=== PATIENT | male | born 1975 | race African-American/Black ===

== ENCOUNTER 2017-06-23 18:34 | Inpatient (IN) | payer MEDICAID, OTHER ==
[~2017-06-23] VITALS: Ht 185.4 cm; Wt 61.8 kg
[2017-06-23] MEDS ORDERED: SODIUM CHLORIDE 0.9% 1,000 ML IV ONE (19:17)
[2017-06-23] MEDS ORDERED: MORPHINE SULFATE 4 MG/ML CPJ (NOT FOR IM USE) IV STA (19:17)
[2017-06-23] MEDS ORDERED: ONDANSETRON HCL 4MG/2ML VIAL IV STA (19:17)
[2017-06-23 19:53] LABS: EOSINOPHILS % 1.8 % (0.0-5.0); HEMATOCRIT. 43.7 % (42.0-52.0); HEMOGLOBIN. 15.1 g/dL (14.0-18.0); LYMPHOCYTES % 15.2 % (20.0-50.0); MEAN CORPUSCULAR HEMOGLOBIN 30.9 pg (28.0-32.0); MEAN CORPUSCULAR VOLUME 89.4 fL (80.0-94.0); MEAN PLATELET VOLUME 8.6 fl (7.4-10.4); MONOCYTES % 7.1 % (2.0-8.0); NEUTROPHILS % 74.9 % (40.0-76.0); PLATELET 249 x1000/uL (130-400); RED BLOOD CELL COUNT 4.89 mill/uL (4.7-6.1); RED CELL DISTRIBUTION WIDTH 13.5 % (11.6-14.6)
[2017-06-23] MEDS ORDERED: MORPHINE SULFATE 10 MG/ML CPJ IV NR ×2 (20:00→21:30)
[2017-06-23 20:04] LABS: CARBON DIOXIDE 25 mEq/L (21-32); CHLORIDE 103 mEq/L (98-107)
[2017-06-23 20:33] LABS: PARTIAL THROMBOPLASTIN TIME 25.8 sec (23.4-31.0); PROTHROMBIN TIME 10.2 sec (9.4-11.6)
[2017-06-23] MEDS ORDERED: MORPHINE SULFATE 4 MG/ML CPJ (NOT FOR IM USE) IV ONE (21:00)
[2017-06-23] MEDS ORDERED: ENOXAPARIN 120MG/0.8ML SYR SUBCUT ONE (21:00)
[2017-06-23] MEDS ORDERED: DOCUSATE SODIUM 100MG CAPSULE PO PRN (23:00)
[2017-06-23] MEDS ORDERED: ONDANSETRON HCL 4MG/2ML VIAL IV PRN (23:00)
[2017-06-23] MEDS ORDERED: HYDROCODONE/ACETAMINOPHEN 5/325MG TABLET PO PRN (23:00)
[2017-06-23] MEDS ORDERED: MAGNESIUM/ALUMINUM HYDROXIDE/SIMETHICONE 30ML UDC PO PRN (23:00)
[2017-06-23] MEDS ORDERED: ACETAMINOPHEN 325MG TABLET PO PRN (23:00)
[2017-06-23] MEDS ORDERED: MORPHINE SULFATE 10 MG/ML CPJ IV PRN (23:00)
[2017-06-23] MEDS ORDERED: IPRATROPIUM/ALBUTEROL 0.5-3(2.5)MG/3ML NEB INH PRN (23:00)
[2017-06-23] MEDS ORDERED: POTASSIUM CHLORIDE 20MEQ TABLET SR PO NR (23:00)
[2017-06-23] MEDS ORDERED: CLONIDINE 0.1MG TABLET PO PRN (23:00)
[2017-06-23 23:35] VITALS: BP 138/88
[2017-06-24] VITALS (12 sets, daily range): BP systolic 117–157; BP diastolic 68–95
[2017-06-24 00:38] LABS: BASOPHILS % 0.8 % (0.0-2.0); EOSINOPHILS % 0.1 % (0.0-5.0); HEMATOCRIT. 41.8 % (42.0-52.0); HEMOGLOBIN. 14.3 g/dL (14.0-18.0); LYMPHOCYTES % 11.3 % (20.0-50.0); MEAN CORPUSCULAR HEMOGLOBIN 30.9 pg (28.0-32.0); MEAN CORPUSCULAR VOLUME 90.4 fL (80.0-94.0); MEAN PLATELET VOLUME 8.6 fl (7.4-10.4); MONOCYTES % 3.9 % (2.0-8.0); NEUTROPHILS % 83.9 % (40.0-76.0); PLATELET 225 x1000/uL (130-400); RED BLOOD CELL COUNT 4.62 mill/uL (4.7-6.1)
[2017-06-24 01:14] LABS: CARBON DIOXIDE 26 mEq/L (21-32); CHLORIDE 105 mEq/L (98-107); HDL CHOLESTEROL 55 mg/dL (40-59); LDL CHOLESTEROL 164 mg/dL (5-100)
[2017-06-24 07:19] LABS: CLARITY URINE CLEAR (CLEAR); COLOR URINE YELLOW (YELLOW); GLUCOSE URINE NEGATIVE (NEGATIVE); KETONES URINE NEGATIVE (NEGATIVE); LEUKOCYTE ESTERASE URINE TRACE (NEGATIVE); NITRITE URINE NEGATIVE (NEGATIVE); OCCULT BLOOD URINE 1+ (NEGATIVE); PROTEIN URINE NEGATIVE (NEGATIVE); SPECIFIC GRAVITY URINE 1.027 (1.005-1.030); UROBILINOGEN URINE 0.2 E.U./dL (0.2-1.0)
[2017-06-24 07:47] LABS: *AMPHETAMINES SCREEN URINE NEGATIVE (NEGATIVE); *BARBITURATES SCREEN URINE NEGATIVE (NEGATIVE); *BENZODIAZEPINES SCREEN URINE NEGATIVE (NEGATIVE); *COCAINE SCREEN URINE NEGATIVE (NEGATIVE); CANNABINOID URINE SCREEN PRESUMTIVE POSITIVE (NEGATIVE); METHADONE URINE SCREEN NEGATIVE (NEGATIVE); OPIATES URINE SCREEN PRESUMTIVE POSITIVE (NEGATIVE); PHENCYCLIDINE URINE SCREEN NEGATIVE (NEGATIVE)
[2017-06-24 08:34] LABS: CREATINE KINASE MB FRACTION 44.2 ng/mL (0.5-3.6)
[2017-06-24 08:37] LABS: TROPONIN I 5.3 ng/mL (0.00-0.04)
[2017-06-24] MEDS: METOPROLOL TARTRATE 25MG TABLET PO SCH ×2 (08:37→21:11)
[2017-06-24] MEDS ORDERED: ASPIRIN 81MG EC TABLET PO SCH ×2 (09:00→10:25)
[2017-06-24] MEDS ORDERED: ENOXAPARIN 120MG/0.8ML SYR SUBCUT SCH (09:00)
[2017-06-24] MEDS: NITROGLYCERIN OINT 1GM/INCH UDPKT TD SCH ×3 (10:30→20:09)
[2017-06-24] MEDS: AMLODIPINE 2.5MG TABLET PO SCH ×2 (10:30→21:11)
[2017-06-24] MEDS ORDERED: CLONIDINE 0.2MG TABLET PO PRN (10:30)
[2017-06-24] MEDS ORDERED: LIDOCAINE HCL 1% 20ML VIAL (Pyxis) INJ ONE (10:50)
[2017-06-24] MEDS ORDERED: IOHEXOL-300 100 ML BOTTLE ONE (10:51)
[2017-06-24] MEDS ORDERED: MIDAZOLAM HCL 2 MG/2 ML VIAL ONE (10:55)
[2017-06-24] MEDS ORDERED: IOVERSOL 240MG/ML 100ML BOTTLE IV ONE (11:15)
[2017-06-24] MEDS ORDERED: IODIXANOL 320MG/ML 100 ML BOTTLE IV ONE ×2 (11:25→11:55)
[2017-06-24] MEDS ORDERED: HEPARIN SODIUM 1,000 UNIT/1ML VIAL IV ONE (12:02)
[2017-06-24] MEDS ORDERED: CLOPIDOGREL 75MG TABLET ONE (12:10)
[2017-06-24] MEDS ORDERED: ATROPINE SULFATE 1MG/10ML SYR IV PRN (12:15)
[2017-06-24] MEDS ORDERED: MORPHINE SULFATE 2 MG/ML CPJ (NOT FOR IM USE) IV PRN (12:15)
[2017-06-24] MEDS ORDERED: SODIUM CHLORIDE 0.45% 1,000 ML IV ONE (12:15)
[2017-06-24] MEDS ORDERED: ONDANSETRON HCL 4MG/2ML VIAL IV PRN (12:15)
[2017-06-24] MEDS ORDERED: CLONIDINE 0.1MG TABLET PO PRN (12:39)
[2017-06-24] MEDS ORDERED: CLOPIDOGREL 75MG TABLET PO NR (13:00)
[2017-06-24 15:04] LABS: CREATINE KINASE MB FRACTION 60.1 ng/mL (0.5-3.6)
[2017-06-24] MEDS: ACETAMINOPHEN 325MG TABLET PO PRN ×2 (17:47→22:16)
[2017-06-24] MEDS ORDERED: ATORVASTATIN CALCIUM 20MG TABLET PO SCH (21:00)
[2017-06-25] VITALS (8 sets, daily range): BP systolic 111–159; BP diastolic 60–97
[2017-06-25] MEDS: NITROGLYCERIN OINT 1GM/INCH UDPKT TD SCH ×5 (04:00→15:15)
[2017-06-25 06:51] LABS: BASOPHILS % 0.7 % (0.0-2.0); EOSINOPHILS % 4.4 % (0.0-5.0); HEMATOCRIT. 42.9 % (42.0-52.0); HEMOGLOBIN. 14.5 g/dL (14.0-18.0); LYMPHOCYTES % 28.8 % (20.0-50.0); MEAN CORPUSCULAR HEMOGLOBIN 30.6 pg (28.0-32.0); MEAN CORPUSCULAR VOLUME 90.8 fL (80.0-94.0); MEAN PLATELET VOLUME 9.1 fl (7.4-10.4); MONOCYTES % 9.7 % (2.0-8.0); NEUTROPHILS % 56.4 % (40.0-76.0); PLATELET 234 x1000/uL (130-400); RED BLOOD CELL COUNT 4.72 mill/uL (4.7-6.1); RED CELL DISTRIBUTION WIDTH 13.8 % (11.6-14.6)
[2017-06-25 07:37] LABS: CARBON DIOXIDE 28 mEq/L (21-32); CHLORIDE 104 mEq/L (98-107); CREATINE KINASE 995 IU/L (39-308); CREATINE KINASE MB FRACTION 20.6 ng/mL (0.5-3.6); HDL CHOLESTEROL 57 mg/dL (40-59); LDL CHOLESTEROL 177 mg/dL (5-100)
[2017-06-25] MEDS: AMLODIPINE 2.5MG TABLET PO SCH (08:55)
[2017-06-25] MEDS: METOPROLOL TARTRATE 25MG TABLET PO SCH (08:56)
[2017-06-25] MEDS ORDERED: CLOPIDOGREL 75MG TABLET PO SCH (09:00)
[2017-06-25] MEDS ORDERED: ASPIRIN 325MG TABLET PO SCH (09:00)
[2017-06-25] MEDS ORDERED: LOSARTAN POTASSIUM 25 MG TABLET PO SCH (11:30)
== END 2017-06-25 17:15 | disposition left against medical advice (07) | DRG 174 ==
LOC: ER 18:34 → 6WST 22:05 → EDBEDREQ 22:08 → EDBEDREQTM 22:08 → ENRESERV 22:16 → 3WST 06-24 12:37
PROVIDERS: ADMIT Internal Medicine; ATTEND Internal Medicine
PROC: 027035Z Dilation of Coronary Artery, One Artery with Two Drug-eluting Intraluminal Devices, Percutaneous Approach (ICD-10-PCS; principal; 2017-06-24)
PROC: 4A023N7 Measurement of Cardiac Sampling and Pressure, Left Heart, Percutaneous Approach (ICD-10-PCS; 2017-06-24)
PROC: B2111ZZ Fluoroscopy of Multiple Coronary Arteries using Low Osmolar Contrast (ICD-10-PCS; 2017-06-24)
PROC: B2151ZZ Fluoroscopy of Left Heart using Low Osmolar Contrast (ICD-10-PCS; 2017-06-24)
DX: I21.4 Non-ST elevation (NSTEMI) myocardial infarction (principal); N17.9 Acute kidney failure, unspecified; I11.9 Hypertensive heart disease without heart failure; E87.6 Hypokalemia; E78.5 Hyperlipidemia, unspecified; E78.00 Pure hypercholesterolemia, unspecified; F12.90 Cannabis use, unspecified, uncomplicated; K21.9 Gastro-esophageal reflux disease without esophagitis; Z53.21 Procedure and treatment not carried out due to patient leaving prior to being seen by health care provider; Z91.19 Patient's noncompliance with other medical treatment and regimen; Z59.0 Homelessness
CPT/HCPCS: 36415; 71010; 80048; 80053; 80061; 80305; 81001; 82550; 82553; 83690; 83735; 83880; 84443; 84484; 85025; 85347; 85610; 85730; 92928; 93005; 93306; 93458; 93970; 96361; 96374; 96375; 99291; C1725; C1769; C1887; C1893; J1644; J1650; J2250; J2270; J2405; J3490; J7030; Q9967

== ENCOUNTER 2019-06-20 16:49 | Emergency (ER) | payer MEDICAID ==
[~2019-06-20] VITALS: Ht 180.3 cm; Wt 131.0 kg
[2019-06-20] MEDS ORDERED: SODIUM CHLORIDE 0.9% 1,000 ML IV ONE (17:43)
[2019-06-20] MEDS ORDERED: ASPIRIN 325MG EC TABLET PO ONE (17:45)
[2019-06-20] MEDS ORDERED: NITROGLYCERIN OINT 1GM/INCH UDPKT TD ONE (17:45)
[2019-06-20 18:49] LABS: BASOPHILS % 0.3 % (0.0-2.0); EOSINOPHILS % 7.9 % (0.0-5.0); HEMATOCRIT. 39.3 % (42.0-52.0); HEMOGLOBIN. 13.4 g/dL (14.0-18.0); LYMPHOCYTES % 33.7 % (20.0-50.0); MEAN CORPUSCULAR HEMOGLOBIN 30.6 pg (28.0-32.0); MEAN CORPUSCULAR VOLUME 89.8 fL (80.0-94.0); MEAN PLATELET VOLUME 9.4 fl (7.4-10.4); MONOCYTES % 9.3 % (2.0-8.0); NEUTROPHILS % 48.8 % (40.0-76.0); PLATELET 244 x1000/uL (130-400); RED BLOOD CELL COUNT 4.38 mill/uL (4.7-6.1); RED CELL DISTRIBUTION WIDTH 14.1 % (11.6-14.6)
[2019-06-20 18:51] LABS: CHLORIDE 104 mEq/L (98-107)
[2019-06-20 18:52] LABS: INR 0.9; PROTHROMBIN TIME 9.7 sec (9.6-11.0)
[2019-06-21] MEDS: ACETAMINOPHEN 325MG TABLET PO NR ×2 (00:03→02:05)
[2019-06-21 05:47] VITALS: BP 120/66
== END 2019-06-21 05:51 | disposition home or self-care (01) ==
LOC: ER 16:49 → EDBEDREQTM 20:57 → EDBEDREQ 20:57 → ER 06-21 05:51 → CANBEDREQ 06-21 06:12
DX: R07.89 Other chest pain (principal); R53.83 Other fatigue; I10 Essential (primary) hypertension; I25.10 Atherosclerotic heart disease of native coronary artery without angina pectoris; Z95.5 Presence of coronary angioplasty implant and graft; I25.2 Old myocardial infarction
CPT/HCPCS: 36415; 71045; 80053; 83880; 84484; 85025; 85610; 93005; 99284; J7030

== ENCOUNTER 2019-10-20 20:03 | Inpatient (IN) | payer MEDICAID ==
[~2019-10-20] VITALS: Ht 185.4 cm; Wt 129.7 kg
[2019-10-20] MEDS ORDERED: METHYLPREDNISOLONE SOD SUCC 125 MG/2 ML VIAL IV STA (22:46)
[2019-10-20] MEDS ORDERED: ONDANSETRON HCL 4MG/2ML INJ IV STA (22:46)
[2019-10-20] MEDS ORDERED: MORPHINE SULFATE 4 MG/ML CPJ (NOT FOR IM USE) IV STA (22:46)
[2019-10-20] MEDS ORDERED: IPRATROPIUM/ALBUTEROL 0.5-3(2.5)MG/3ML NEB HHN ONE (23:00)
[2019-10-20] MEDS ORDERED: LEVOFLOXACIN 500MG PREMIX 100 ML IV ONE (23:00)
[2019-10-20] MEDS ORDERED: FUROSEMIDE 40MG/4ML VIAL IV ONE (23:00)
[2019-10-20] MEDS ORDERED: ASPIRIN 81MG TABLET PO ONE (23:00)
[2019-10-20 23:10] LABS: HEMATOCRIT. 41.8 % (42.0-52.0); HEMOGLOBIN. 14.5 g/dL (14.0-18.0); MEAN CORPUSCULAR HEMOGLOBIN 30.9 pg (28.0-32.0); MEAN CORPUSCULAR VOLUME 89.3 fL (80.0-94.0); MEAN PLATELET VOLUME 9.3 fl (7.4-10.4); PLATELET 222 x1000/uL (130-400); RED BLOOD CELL COUNT 4.69 mill/uL (4.7-6.1)
[2019-10-20 23:12] LABS: CLARITY URINE CLEAR (CLEAR); COLOR URINE YELLOW (YELLOW); KETONES URINE NEGATIVE (NEGATIVE); LEUKOCYTE ESTERASE URINE NEGATIVE (NEGATIVE); NITRITE URINE NEGATIVE (NEGATIVE); OCCULT BLOOD URINE 1+ (NEGATIVE); PROTEIN URINE NEGATIVE (NEGATIVE); SPECIFIC GRAVITY URINE 1.015 (1.005-1.030); UROBILINOGEN URINE 0.2 E.U./dL (0.2-1.0)
[2019-10-20 23:19] LABS: CHLORIDE 102 mEq/L (98-107)
[2019-10-20 23:22] LABS: PARTIAL THROMBOPLASTIN TIME 28.5 sec (23.4-31.0); PROTHROMBIN TIME 11.1 sec (9.6-11.0)
[2019-10-20 23:28] LABS: PLATELET ESTIMATE NORMAL
[2019-10-21] MEDS ORDERED: SODIUM CHLORIDE 0.9% 1,000 ML IV ONE (00:50)
[2019-10-21] MEDS ORDERED: LORAZEPAM 2MG/ML CPJ IV ONE (01:00)
[2019-10-21] MEDS ORDERED: ASPI-864 PO (06:55)
[2019-10-21] MEDS ORDERED: LOSA50TA41 PO (06:55)
[2019-10-21] MEDS ORDERED: CLOP75TA4 PO (06:55)
[2019-10-21] MEDS ORDERED: ATOR20TA PO (07:18)
[2019-10-21] MEDS ORDERED: METO1TAB26 PO (07:18)
[2019-10-21] MEDS ORDERED: ONDANSETRON HCL 4MG/2ML INJ IV PRN (09:30)
[2019-10-21] MEDS ORDERED: ACETAMINOPHEN 325MG TABLET PO PRN (09:30)
[2019-10-21] MEDS ORDERED: DIPHENHYDRAMINE 50MG/ML VIAL IV PRN (09:30)
[2019-10-21] MEDS ORDERED: IPRATROPIUM/ALBUTEROL 0.5-3(2.5)MG/3ML NEB HHN PRN (09:30)
[2019-10-21] MEDS ORDERED: CLONIDINE 0.1MG TABLET PO PRN (09:30)
[2019-10-21] MEDS ORDERED: ENOXAPARIN 40MG/0.4ML SYR SUBCUT SCH (09:30)
[2019-10-21 10:41] LABS: PHOSPHORUS 3.7 mg/dL (2.5-4.9)
[2019-10-21 14:00] VITALS: BP 130/80
[2019-10-21] MEDS ORDERED: REGADENOSON 0.4 MG/5 ML IV SCH (15:15)
[2019-10-21] MEDS: ASPIRIN 81MG EC TABLET PO SCH (15:38)
[2019-10-21] MEDS: LOSARTAN POTASSIUM 25 MG TABLET PO SCH (15:38)
[2019-10-21] MEDS: METOPROLOL TARTRATE 25MG TABLET PO SCH (15:39)
[2019-10-21 16:00] VITALS: BP 141/69
[2019-10-21] MEDS: ENOXAPARIN 30MG/0.3ML SYR SUBCUT SCH (16:25)
[2019-10-21 18:10] LABS: *AMPHETAMINES SCREEN URINE NEGATIVE (NEGATIVE); *BARBITURATES SCREEN URINE NEGATIVE (NEGATIVE); *BENZODIAZEPINES SCREEN URINE NEGATIVE (NEGATIVE); *COCAINE SCREEN URINE NEGATIVE (NEGATIVE)
[2019-10-21 18:11] LABS: CANNABINOID URINE SCREEN PRESUMTIVE POSITIVE (NEGATIVE); METHADONE URINE SCREEN NEGATIVE (NEGATIVE); OPIATES URINE SCREEN PRESUMTIVE POSITIVE (NEGATIVE); PHENCYCLIDINE URINE SCREEN NEGATIVE (NEGATIVE)
[2019-10-21 20:00] VITALS: BP 135/95
[2019-10-21] MEDS ORDERED: ATORVASTATIN CALCIUM 20MG TABLET PO SCH (21:00)
[2019-10-22] VITALS: BP 142/93
[2019-10-22] MEDS ORDERED: VANCOMYCIN 2,000 MG in DEXT 5% WATER 500 ML IV SCH (02:00)
[2019-10-22 04:00] VITALS: BP 98/67
[2019-10-22] MEDS: ENOXAPARIN 30MG/0.3ML SYR SUBCUT SCH (05:44)
[2019-10-22 06:35] LABS: BASOPHILS % 1.2 % (0.0-2.0); EOSINOPHILS % 0.2 % (0.0-5.0); HEMATOCRIT. 44.2 % (42.0-52.0); HEMOGLOBIN. 15.1 g/dL (14.0-18.0); LYMPHOCYTES % 39.9 % (20.0-50.0); MEAN CORPUSCULAR HEMOGLOBIN 30.8 pg (28.0-32.0); MEAN CORPUSCULAR VOLUME 90.1 fL (80.0-94.0); MEAN PLATELET VOLUME 9.2 fl (7.4-10.4); MONOCYTES % 12.4 % (2.0-8.0); NEUTROPHILS % 46.3 % (40.0-76.0); PLATELET 247 x1000/uL (130-400); RED BLOOD CELL COUNT 4.91 mill/uL (4.7-6.1); RED CELL DISTRIBUTION WIDTH 14.2 % (11.6-14.6)
[2019-10-22 07:10] LABS: CHLORIDE 99 mEq/L (98-107)
[2019-10-22 07:18] LABS: LDL CHOLESTEROL 114 mg/dL (5-100)
[2019-10-22 07:20] LABS: HDL CHOLESTEROL 55 mg/dL (40-59)
[2019-10-22 07:37] LABS: VITAMIN B12 SERUM 603 pg/mL (211-911)
[2019-10-22 08:00] VITALS: BP 121/83
[2019-10-22] MEDS: LOSARTAN POTASSIUM 25 MG TABLET PO SCH ×2 (09:00→13:41)
[2019-10-22] MEDS: METOPROLOL TARTRATE 25MG TABLET PO SCH ×2 (09:00→13:42)
[2019-10-22] MEDS: ASPIRIN 81MG EC TABLET PO SCH ×2 (09:00→13:42)
[2019-10-22] MEDS ORDERED: REGADENOSON 0.4 MG/5 ML IV ONE (10:13)
[2019-10-22 11:56] VITALS: BP 106/76
[2019-10-22] MEDS ORDERED: VANCOMYCIN 1250MG in DEXTROSE 5% WATER 250ML IV SCH (18:00)
== END 2019-10-22 16:20 | disposition home or self-care (01) | DRG 133 ==
LOC: ER 20:03 → EDBEDREQ 10-21 01:03 → 6WST 10-21 01:46 → EDBEDREQTM 10-21 01:48 → EDBEDREQDT 10-21 01:48 → EDBEDREQ 10-21 01:48 → ENRESERV 10-21 13:29
PROVIDERS: ADMIT Internal Medicine; ATTEND Internal Medicine
DX: J96.00 Acute respiratory failure, unspecified whether with hypoxia or hypercapnia (principal); E78.00 Pure hypercholesterolemia, unspecified; K21.9 Gastro-esophageal reflux disease without esophagitis; J06.9 Acute upper respiratory infection, unspecified; E78.5 Hyperlipidemia, unspecified; F12.90 Cannabis use, unspecified, uncomplicated; I10 Essential (primary) hypertension; I25.10 Atherosclerotic heart disease of native coronary artery without angina pectoris; I25.2 Old myocardial infarction; Z95.5 Presence of coronary angioplasty implant and graft; Z79.899 Other long term (current) drug therapy; Z79.82 Long term (current) use of aspirin; Z68.37 Body mass index [BMI] 37.0-37.9, adult
CPT/HCPCS: 36415; 71045; 78452; 80053; 80061; 80305; 81003; 82607; 83605; 83735; 83880; 84100; 84443; 84484; 85025; 93005; 93017; 93306; 93970; 94640; 99285; A9500; J1650; J1940; J1956; J2060; J2270; J2405; J2785; J2930; J3370; J7030; J7060